=== PATIENT | female | born 1950 | race Caucasian/White ===

== ENCOUNTER 2016-09-01 00:49 | Emergency (ER) | payer SELFPAY ==
[2016-09-01 02:18] VITALS: BP 198/97
== END 2016-09-01 01:15 | disposition left against medical advice (07) ==
LOC: ED 00:49
DX: I10 Essential (primary) hypertension (principal); R07.9 Chest pain, unspecified; Z53.21 Procedure and treatment not carried out due to patient leaving prior to being seen by health care provider